=== PATIENT | male | born 1985 | race Caucasian/White ===

== ENCOUNTER 2017-03-12 02:26 | Emergency (ER) | payer OTHER ==
[2017-03-12 03:18] LABS: HEMOGLOBIN 14.2 gm/dl (14.0-17.5); RED BLOOD COUNT 4.66 M/UL (4.20-5.50); WHITE BLOOD COUNT 11.3 K/UL (4.5-11.0)
[2017-03-12 03:36] LABS: BUN/CREATININE RATIO 11 (0-10)
== END 2017-03-12 04:05 | disposition home or self-care (01) ==
LOC: ER1 02:26
PROVIDERS: Family Medicine
DX: N50.82 Scrotal pain (principal); F17.200 Nicotine dependence, unspecified, uncomplicated; Z98.52 Vasectomy status
CPT/HCPCS: 36415; 80053; 81001; 85025; 99283

== ENCOUNTER 2017-03-12 13:44 | Emergency (ER) | payer OTHER | END 2017-03-12 17:42 | disposition home or self-care (01) | LOC: ER1 13:44 | DX: N50.812 Left testicular pain (principal); R10.31 Right lower quadrant pain | CPT/HCPCS: 76870; 99284 ==